=== PATIENT | female | born 1945 | race Two or more races ===

== ENCOUNTER 2023-04-05 09:28 | Outpatient (CLI) | payer OTHER | END 2023-04-05 09:40 | disposition home or self-care (01) | LOC: NUCLEAR 09:28 | PROVIDERS: ATTEND Internal Medicine | DX: I11.9 Hypertensive heart disease without heart failure (principal); I87.2 Venous insufficiency (chronic) (peripheral) ==

== ENCOUNTER 2023-05-18 10:21 | Outpatient (CLI) | payer OTHER | END 2023-05-18 10:42 | disposition home or self-care (01) | LOC: MRI 10:21 | PROVIDERS: ATTEND Psychiatry & Neurology Clinical Neurophysiology | DX: G31.84 Mild cognitive impairment of uncertain or unknown etiology (principal) | CPT/HCPCS: 70551 ==

== ENCOUNTER 2024-10-19 09:49 | Emergency (ER) | payer OTHER ==
[~2024-10-19] VITALS: Ht 160 cm; Wt 53.5 kg
[2024-10-19] MEDS ORDERED: METOPROLOL SUCC50 MG PO (10:17)
[2024-10-19] MEDS ORDERED: LEVOTHYROXINE50 MCG PO (10:17)
[2024-10-19] MEDS ORDERED: SIMVASTATIN40 MG PO (10:17)
[2024-10-19] MEDS ORDERED: ARICEPT5 MG PO (10:18)
[2024-10-19] MEDS ORDERED: METOCLOPRAMIDE HCL 5 MG/ML VIAL IM ONE (12:15)
[2024-10-19 12:50] LABS: HEMATOCRIT 41.5 % (36.0-45.00); HEMOGLOBIN 14.2 g/dL (12.0-15.00); MEAN CELL VOLUME 93.3 fL (80.00-100.00); MEAN CORPUSCULAR HEMOGLOBIN 31.9 pg (27.00-32.0); MEAN CORPUSCULAR HGB CONC 34.2 g/dl (32.0-36.0); PLATELET COUNT 224 K/uL (150-450); RED BLOOD COUNT 4.45 M/uL (4.00-6.00); RED CELL DISTRIBUTION WIDTH 12.8 % (11.5-14.5)
[2024-10-19 13:25] LABS: ALBUMIN 3.7 gm/dL (3.4-5.0); BILIRUBIN TOTAL 0.95 mg/dL (0.3-1.2); CREATININE SERUM 0.63 mg/dL (0.55-1.02); GFR 91.39; GLOBULINA 3.2 G/DL (2.4-3.5); POTASSIUM 3.67 mEq/L (3.5-5.1); TOTAL PROTEIN 6.9 gm/dL (6.4-8.2); TSH 0.966 uIU/mL (0.358-3.74)
== END 2024-10-19 13:45 | disposition home or self-care (01) ==
LOC: ER 09:49
PROVIDERS: General Practice
DX: A05.9 Bacterial foodborne intoxication, unspecified (principal); R11.10 Vomiting, unspecified; I10 Essential (primary) hypertension
CPT/HCPCS: 36415; 93005; 96372; 99282; J2765

== ENCOUNTER 2024-10-30 10:28 | Outpatient (CLI) | payer OTHER ==
[~2024-10-30 10:28] MED LIST: ARICEPT5 MG PO; LEVOTHYROXINE50 MCG PO; METOPROLOL SUCC50 MG PO; SIMVASTATIN40 MG PO
== END 2024-10-30 10:34 | disposition home or self-care (01) ==
LOC: SONOGRAMA 10:28
PROVIDERS: ATTEND Internal Medicine Endocrinology, Diabetes & Metabolism
DX: E04.8 Other specified nontoxic goiter (principal)

== ENCOUNTER 2024-12-24 09:09 | Outpatient (CLI) | payer OTHER | END 2024-12-24 09:10 | disposition home or self-care (01) | LOC: NUCLEAR 09:09 | PROVIDERS: ATTEND Psychiatry & Neurology Clinical Neurophysiology | DX: G30.1 Alzheimer's disease with late onset (principal) | CPT/HCPCS: 78811; A9552 ==